=== PATIENT | female | born 1945 | race Caucasian/White ===

== ENCOUNTER 2021-03-16 12:13 | Inpatient (IN) ==
[2021-03-16] MEDS ORDERED: ONDANSETRON INJ 2 MG/ML 2 ML VIAL IV STA ×2 (12:56→14:55)
[2021-03-16] MEDS ORDERED: SODIUM CHLORIDE 0.9% 1000ML 500 ML IV ONE (12:56)
[2021-03-16 13:08] LABS: Basophils # (auto) 0.01 K/uL (0-0.2); Basophils % (auto) 0.1 %; Eosinophils # (auto) 0.02 K/uL (0-0.5); Eosinophils % (auto) 0.3 %; Hemoglobin 13.4 g/dL (12.0-16.0); Immature Granulocytes # (auto) 0.03 K/uL (0.00-0.02); Immature Granulocytes % (auto) 0.4 %; Lymphocytes # (auto) 1.29 K/uL (1.2-3.4); Lymphocytes % (auto) 17.2 %; Mean Corpuscular Hemoglobin 28.2 pg (25-34); Mean Corpuscular Hgb Conc 33.5 g/dL (32-36); Mean Corpuscular Volume 84.2 fL (80-100); Mean Platelet Volume 9.3 fL (7.4-10.4); Monocytes # (auto) 0.69 K/uL (0.11-0.59); Monocytes % (auto) 9.2 %; Neutrophils # (auto) 5.48 K/uL (1.4-6.5); Neutrophils % (auto) 72.8 %; Platelet Count 333 K/uL (130-400); RDW Coefficient of Variation 13.2 % (11.5-14.5); RDW Standard Deviation 40.5 fL (36.4-46.3); Red Blood Count 4.75 M/uL (4.2-5.4); White Blood Count 7.52 K/uL (4.8-10.8)
[2021-03-16] MEDS ORDERED: MoRPHine SULFATE 2 MG/ML CARP IV STA (13:09)
[2021-03-16] MEDS ORDERED: ACETAMINOPHEN 1000 MG/100 ML IV IV STA (13:09)
--- NOTE | 2021-03-16 13:13 | Emergency Department Note ---
Impression & Plan Diffuse abdominal pain, Acute dehydration, Nausea, Diarrhea, Failure of outpatient treatment, COVID-19 ED Provider Note NAME: MAX HUDSON AGE: 76 SEX: F : 1945 ARRIVES VIA: Ambulance INFORMANT: [Patient] ED PROVIDER(S): [Jamie James MD] CHIEF COMPLAINT: Abdominal pain HISTORY OF PRESENT ILLNESS: The patient is a 76-year-old female who presents to the ER with lower abdominal pain that is an 8/10. The patient was diagnosed with COVID-19 over 2 weeks ago as an outpatient. She was seen in our ED on 08 March, 8 days ago. Patient had a CT of her abdomen at that time that showed gastroenteritis. She was felt stable for discharge home. The patient states that since being at home, she has continued to have diarrhea, belching and nausea. She has continued to have the lower abdominal pain that radiates to her back. It is a burning sensation. She is concerned that something else is wrong. The patient states that she is trying Zofran for nausea but it rios s not helped. The patient has had some chills, no fever, no cough or congestion or shortness of breath. She is not vaccinated for COVID-19 or influenza. She has at times tried ibuprofen for pain. The ibuprofen does not really do much for her discomfort. The patient believes that she is quite bloated. She feels like she may be full of gas. She is concerned for diverticulitis. REVIEW OF SYSTEMS: See HPI for pertinent positives and negatives. A total of ten systems were reviewed and were otherwise negative. PMHx/PSHx: See Below SOCIAL HISTORY: See Below. PHYSICAL EXAM: GENERAL: Patient is in no acute distress. HEENT: No acute trauma, normocephalic atraumatic, mucous membranes moist, no nasal congestion, no scleral icterus. NECK: No stridor, no adenopathy, no meningismus, trachea is midline. LUNGS: Clear to auscultation bilaterally, no wheeze, no rhonchi, breath sounds e qual. HEART: Without murmurs gallops or rubs, regular rate and rhythm. ABDOMEN: Soft, mild discomfort to palpate the lower abdomen bilaterally. Bowel sounds are hyperactive. There is some abdominal distention noted. No peritonitis. EXTREMITIES: No cyanosis or edema, full range of motion of all the joints without pain or difficulty, no signs for acute trauma. NEUROLOGIC: Oriented x 3, no acute motor or sensory deficits, no focal weakness. SKIN: No rash, no jaundice, no diaphoresis. DIFFERENTIAL DIAGNOSIS: Appendicitis, ovarian cyst, ovarian torsion, diverticulitis, UTI, obstruction, COVID-19, gastroenteritis, colitis, dehydration, mesenteric ischemia, aortic pathology, inflammatory bowel disease, renal colic, PUD, pancreatitis, biliary pathology, hernia, volvulus, constipation, as well as other pathologies. EMERGENCY DEPARTMENT COURSE/PROCEDURES: ECG: Indication was abdominal pain. The ECG shows a sinus bradycardia with a rate of fifty-eight. There is diffuse nonspecific ST change. No ST elevation, no PVCs. The QTc is 453. Continuous Cardiac Monitoring: An order was placed for continuous cardiac m onitoring. The monitor shows a rate of 63 with normal sinus rhythm. MEDICAL DECISION MAKING: There is no leukocytosis or concerning anemia. There is a normal platelet count. Potassium slightly low but not in need of emergent correction. No kidney failure. No worrisome liver enzyme elevation. No evidence for pancreatitis. ECG shows a sinus bradycardia, no acute ischemia. Cardiac enzyme testing x1 is not not consistent with acute cardiac injury. Covid testing is positive. Influenza and RSV tests are negative. Chest film does show some parenchymal congestion consistent with a mild Covid pneumonia. Abdominal and pelvis CT does not show any bowel obstruction or acute colitis. There is no diverticulitis. No acute surgical process by CT imaging. On exam, patient was diffusely tender about the abdomen, she was not showing signs of peritonitis. She was not toxic or febrile. The patient received IV saline for hydration. She was given IV Zofran for nausea. A second dose of Zofran was required IV. She was then given IV Phenergan for nausea. She received IV Toradol for pain, IV morphine for pain. She was given IV Tylenol for pain. The patient presents with persistent nausea, abdominal pain, diarrhea. She cannot eat, she feels dehydrated. She does have COVID-19 and it appears that her symptoms are more GI related, not respiratory. The patient is not able be discharged home. She has failed outpatient treatment. She will require further care and hydration while here in the hospital. I did speak with the patient and and case management. The on-call hospitalist was consulted. Past Med/Surg History Medical History COVID-19 Family History (Updated 03/16/21 @ 17:46 by John Paul Aldana MD) Mother Hypertension Social History Smoking Status: Never smoker Hx Alcohol Use: No Feels Safe at Home: Yes Allergies Allergies Allergy/AdvReac Type Severity Reaction Status Date / Time No Known Allergies Allergy Verified 03/16/21 15:37 Home Meds Home Medications Medication Instructions Recorded Confirmed atenolol 25 mg tablet 25 mg PO DAILY 03/08/21 03/16/21 cholecalciferol (vitamin D3) 25 25 mcg PO QDL 03/08/21 03/16/21 mcg (1,000 unit) capsule (Vitamin D3) levothyroxine 125 mcg tablet See Rx Instructions .ROUTE .COMPLEX 03/08/21 03/16/21 lisinopril 40 mg tablet 40 mg PO HS 03/08/21 03/16/21 psyllium husk (with sugar) 3 1 tbsp PO DAILY 03/08/21 03/16/21 gram/7 gram oral powder (Metamucil Free) sertraline 100 mg tablet 100 mg PO HS 03/08/21 03/16/21 vitamin B complex 1 cap PO QDL 03/08/21 03/16/21 fluticasone propionate 50 2 spray INTRANASAL DAILY 03/16/21 03/16/21 mcg/actuation nasal spray,suspension ondansetron 4 mg disintegrating 4 mg TRANSLINGUAL Q8 PRN 03/16/21 03/16/21 tablet Results & Data (ED) Vital Signs Vital Signs - 24 hr 03/16/21 12:39 03/16/21 12:50 03/16/21 13:00 Temperature 36.8 C Temperature Source Oral Pulse Rate 62 58 L 60 Pulse Rate from SpO2 Sensor 59 L 59 L Pulse Rhythm Regular Pulse Strength Normal Respiratory Rate 20 15 19 Respiratory Effort / Characteristics Non-Labored Respiratory Depth Normal Blood Pressure 190/88 H 169/85 H Blood Pressure Mean 122 113 Pulse Oximetry 95 95 95 Oxygen Delivery Method Room Air Room Air Room Air Sepsis Recent Fever Within 48 Hours No Sepsis New/Unexplained Change in Mental Status No Sepsis Action Taken by Nursing No Action Required 03/16/21 13:10 03/16/21 13:20 03/16/21 13:30 Temperature Temperature Source Pulse Rate 62 59 L 59 L Pulse Rate from SpO2 Sensor 62 59 L 59 L Pulse Rhythm Pulse Strength Respiratory Rate 14 12 12 Respiratory Effort / Characteristics Respiratory Depth Blood Pressure Blood Pressure Mean Pulse Oximetry 94 94 94 Oxygen Delivery Method Room Air Room Air Room Air Sepsis Recent Fever Within 48 Hours Sepsis New/Unexplained Change in Mental Status Sepsis Action Taken by Nursing 03/16/21 13:40 03/16/21 13:50 03/16/21 14:00 Temperature Temperature Source Pulse Rate 58 L 63 57 L Pulse Rate from SpO2 Sensor 58 L 62 56 L Pulse Rhythm Pulse Strength Respiratory Rate 12 14 13 Respiratory Effort / Characteristics Respiratory Depth Blood Pressure 160/80 H Blood Pressure Mean 106 Pulse Oximetry 95 95 93 Oxygen Delivery Method Room Air Room Air Room Air Sepsis Recent Fever Within 48 Hours Sepsis New/Unexplained Change in Mental Status Sepsis Action Taken by Nursing 03/16/21 14:10 03/16/21 14:20 03/16/21 14:30 Temperature Temperature Source Pulse Rate 60 64 65 Pulse Rate from SpO2 Sensor 60 64 65 Pulse Rhythm Pulse Strength Respiratory Rate 11 L 14 14 Respiratory Effort / Characteristics Respiratory Depth Blood Pressure Blood Pressure Mean Pulse Oximetry 93 94 91 Oxygen Delivery Method Room Air Room Air Room Air Sepsis Recent Fever Within 48 Hours Sepsis New/Unexplained Change in Mental Status Sepsis Action Taken by Nursing 03/16/21 14:46 03/16/21 14:50 03/16/21 15:00 Temperature Temperature Source Pulse Rate 67 79 65 Pulse Rate from SpO2 Sensor 65 59 L 65 Pulse Rhythm Pulse Strength Respiratory Rate 19 22 14 Respiratory Effort / Characteristics Respiratory Depth Blood Pressure 157/76 H Blood Pressure Mean 103 Pulse Oximetry 93 94 95 Oxygen Delivery Method Room Air Room Air Room Air Sepsis Recent Fever Within 48 Hours Sepsis New/Unexplained Change in Mental Status Sepsis Action Taken by Nursing 03/16/21 15:10 03/16/21 15:20 03/16/21 15:30 Temperature Temperature Source Pulse Rate 60 62 64 Pulse Rate from SpO2 Sensor 61 63 64 Pulse Rhythm Pulse Strength Respiratory Rate 14 14 16 Respiratory Effort / Characteristics Respiratory Depth Blood Pressure Blood Pressure Mean Pulse Oximetry 95 97 97 Oxygen Delivery Method Room Air Room Air Room Air Sepsis Recent Fever Within 48 Hours Sepsis New/Unexplained Change in Mental Status Sepsis Action Taken by Nursing 03/16/21 15:40 03/16/21 15:50 03/16/21 16:00 Temperature Temperature Source Pulse Rate 61 62 65 Pulse Rate from SpO2 Sensor 62 62 Pulse Rhythm Pulse Strength Respiratory Rate 12 11 L 14 Respiratory Effort / Characteristics Respiratory Depth Blood Pressure 131/76 Blood Pressure Mean 94 Pulse Oximetry 95 96 Oxygen Delivery Method Room Air Room Air Room Air Sepsis Recent Fever Within 48 Hours Sepsis New/Unexplained Change in Mental Status Sepsis Action Taken by Nursing 03/16/21 16:10 03/16/21 16:20 Temperature Temperature Source Pulse Rate 67 62 Pulse Rate from SpO2 Sensor 67 62 Pulse Rhythm Pulse Strength Respiratory Rate 16 13 Respiratory Effort / Characteristics Respiratory Depth Blood Pressure Blood Pressure Mean Pulse Oximetry 98 96 Oxygen Delivery Method Room Air Room Air Sepsis Recent Fever Within 48 Hours Sepsis New/Unexplained Change in Mental Status Sepsis Action Taken by Group Home Medications Current Medication List: was personally reviewed by me Laboratory Data Attestation: I reviewed the patient's lab results. Result diagrams: 03/16/21 12:35 03/16/21 12:35 Lab Results 03/16/21 03/16/21 03/16/21 Range/Units 12:35 12:35 13:49 WBC 7.52 (4.8-10.8) K/uL RBC 4.75 (4.2-5.4) M/uL Hgb 13.4 (12.0-16.0) g/dL Hct 40.0 (37-47) % MCV 84.2 (80-100) fL MCH 28.2 (25-34) pg MCHC 33.5 (32-36) g/dL RDW Std Deviation 40.5 (36.4-46.3) fL RDW Coeff of Mely 13.2 (11.5-14.5) % Plt Count 333 (130-400) K/uL MPV 9.3 (7.4-10.4) fL Immature Gran % (Auto) 0.4 % Neut % (Auto) 72.8 % Lymph % (Auto) 17.2 % [place] % (Auto) 9.2 % Eos % (Auto) 0.3 % Baso % (Auto) 0.1 % Neut # (Auto) 5.48 (1.4-6.5) K/uL Lymph # (Auto) 1.29 (1.2-3.4) K/uL [place] # (Auto) 0.69 H (0.11-0.59) K/uL Eos # (Auto) 0.02 (0-0.5) K/uL Baso # (Auto) 0.01 (0-0.2) K/uL Immature Gran # (Auto) 0.03 H (0.00-0.02) K/uL Sodium 137 (136-145) mmol/L Potassium 3.4 L (3.5-5.1) mmol/L Chloride 107 (98-107) mmol/L Carbon Dioxide 23 (21-32) mmol/L Anion Gap 7.0 (3-11) BUN 13 (7-18) mg/dl Creatinine 0.82 (0.6-1.2) mg/dl Est Cr Clr Drug Dosing 55.8 ml/min Est GFR ( Amer) 81.1 ml/min Est GFR (Non-Af Amer) 70.0 ml/min BUN/Creatinine Ratio 16.3 (10-20) Glucose 102 H (70-99) mg/dl Calcium 8.7 (8.5-10.1) mg/dl Total Bilirubin 0.6 (0.2-1) mg/dl AST 29 (15-37) U/L ALT 46 (12-78) Alkaline Phosphatase 86 (45-117) U/L Troponin I < 0.015 (0-0.045) ng/ml Total Protein 7.0 (6.4-8.2) gm/dl Albumin 3.1 L (3.4-5.0) gm/dl Globulin 3.9 (2.5-4.0) gm/dl Albumin/Globulin Ratio 0.8 L (0.9-2) Lipase 183 (73-393) U/L SARS-CoV-2 (PCR) POSITIVE A* (Negative) Influenza Type A (PCR) Negative (Neg) Influenza Type B (PCR) Negative (Neg) RSV (RT-PCR) Negative (Neg) Administered Medications Discontinued Medications Acetaminophen (Acetaminophen 1000 Mg/100 Ml Iv) 1,000 mg IV NOW STA Stop: 03/16/21 13:10 Last Admin: 03/16/21 13:45 Dose: 1,000 mg Documented by: [id number] Sodium Chloride (Nss 1000ml) 500 mls @ 999 mls/hr IV .Q31M ONE Stop: 03/16/21 13:26 Last Infusion: 03/16/21 14:27 Dose: 0 mls/hr Documented by: [id number] Admin: 03/16/21 13:45 Dose: 999 mls/hr Documented by: [id number] Promethazine HCl (Phenergan) 6.25 mg in 50.25 mls @ 201 mls/hr IV NOW STA Stop: 03/16/21 15:09 Last Admin: 03/16/21 16:26 Dose: Not Given Documented by: [id number] Ketorolac Tromethamine (Ketorolac Tromethamine 15 Mg/Ml Vial) 15 mg IV NOW STA Stop: 03/16/21 15:18 Last Admin: 03/16/21 16:25 Dose: Not Given Documented by: [id number] Morphine Sulfate (Morphine Sulfate 2 Mg/Ml Carp) 2 mg IV NOW STA Stop: 03/16/21 13:10 Last Admin: 03/16/21 13:45 Dose: 2 mg Documented by: [id number] Morphine Sulfate (Morphine Sulfate 4 Mg/Ml 1 Ml Carp\Vial) 4 mg IV NOW STA Stop: 03/16/21 15:18 Last Admin: 03/16/21 16:25 Dose: Not Given Documented by: [id number] Ondansetron HCl (Ondansetron Inj 2 Mg/Ml 2 Ml Vial) 4 mg IV NOW STA Stop: 03/16/21 12:57 Last Admin: 03/16/21 13:45 Dose: 4 mg Documented by: [id number] Ondansetron HCl (Ondansetron Inj 2 Mg/Ml 2 Ml Vial) 4 mg IV NOW STA Stop: 03/16/21 14:56 Last Admin: 03/16/21 15:06 Dose: 4 mg Documented by: [id number] Imaging Data Radiologist's Impression: Abdomen/Pelvis CT 03/16/21 12:[address] WITHOUT CONTRAST CT DOSE: 437.34 mGy.cm HISTORY: Acute generalized abdominal pain with nausea. COVID Positive. poss obstruction TECHNIQUE: Multiaxial CT images of the abdomen and pelvis were performed without contrast. A dose lowering technique was utilized adhering to the principles of ALARA. COMPARISON STUDY: Chest radiograph of same day, CT abdomen and pelvis 03/08/2021 FINDINGS: Bibasilar patchy subpleural predominant groundglass densities are redemonstrated. Trace left pleural effusion. No pneumatosis or pneumoperitoneum. The imaged inferior cardiac chambers are unremarkable with coronary artery calcifications. The unenhanced spleen, pancreas and adrenal glands are unremarkable. Cholecystectomy. Dilation of the intrahepatic and extrahepatic biliary tree is unchanged from prior and is presumably on a postsurgical basis. Unremarkable kidneys. No urolith or hydronephrosis. Unremarkable urinary bladder, uterus and adnexa with 11 mm cystic focus of the right adnexum redemonstrated. Atherosclerosis of the aorta without aneurysm. There is no adenopathy. There is no bowel obstruction or bowel wall thickening. Colonic diverticulosis without acute diverticulitis. The appendix is not definitively seen. No secondary signs of acute appendicitis. Tiny fat filled periumbilical hernia. Unremarkable soft tissues. There is no acute fracture identified. Degenerative changes of the spine, pelvis and hips. IMPRESSION: 1. Persistent bibasilar groundglass densities suggestive of viral pneumonia. 2. No bowel obstruction or bowel wall thickening. 3. Additional findings as above. ACT 112: Negative or not required by law. The above report was generated using voice recognition software. It may contain grammatical, syntax or spelling errors. Electronically signed by: Jarek Reyes M.D. 03/16/2021 2:57 PM Chest X-Ray 03/16/21 12:56 XR chest 1V portable HISTORY: 76 years-old Female abd pain acute generalized abdominal pain COMPARISON: Chest radiographs 03/08/2021 TECHNIQUE: Portable AP view of the chest FINDINGS: Cardiac silhouette is upper limits of normal in size. Interstitial coarsening with ill-defined bibasilar opacities are new from prior. No pneumothorax, large pleural effusion or overt pulmonary edema. The bones appear grossly intact. IMPRESSION: Mild interstitial coarsening with ill-defined bibasilar opacities. Correlate clinically to exclude an infectious or inflammatory pneumonitis. ACT 112: Negative or not required by law. The above report was generated using voice recognition software. It may contain grammatical, syntax or spelling errors. Electronically signed by: Jarek Reyes M.D. 03/16/2021 2:07 PM Discharge Plan Visit Data Chief Complaint: Abdominal Pain ED Provider: Jamie James Discharge Problem: Diffuse abdominal pain, Acute dehydration, Nausea, Diarrhea, Failure of outpatient treatment, COVID-19 Patient Disposition: Admitted As Inpatient Condition: Fair Forms Stand Alone Forms: My [facility] Prescriptions Prescriptions: No Action sertraline 100 mg tablet 100 mg PO HS RF: 0 atenolol 25 mg tablet 25 mg PO DAILY RF: 0 levothyroxine 125 mcg tablet See Rx Instructions .ROUTE .COMPLEX RF: 0 lisinopril 40 mg tablet 40 mg PO HS RF: 0 vitamin B complex [B Complex] Capsule 1 cap PO QDL RF: 0 cholecalciferol (vitamin D3) [Vitamin D3] 25 mcg (1,000 unit) Capsule 25 mcg PO QDL RF: 0 Metamucil Free 3 gram/7 gram Powder 1 tbsp PO DAILY RF: 0 ondansetron 4 mg tablet,disintegrating 4 mg translingual Q8 PRN (Reason: Nausea) RF: 0 fluticasone propionate 50 mcg/actuation spray,suspension 2 spray INTRANASAL DAILY RF: 0 Referrals Referrals: Juan Spangler MD [Primary Care Provider] -
[2021-03-16 13:29] LABS: Alanine Aminotransferase 46 (12-78); Albumin Level 3.1 gm/dl (3.4-5.0); Aspartate Aminotransferase 29 U/L (15-37); BUN Creatinine Ratio 16.3 (10-20); Blood Urea Nitrogen 13 mg/dl (7-18); Calcium 8.7 mg/dl (8.5-10.1); Carbon Dioxide 23 mmol/L (21-32); Chloride 107 mmol/L (98-107); Creatinine Clr Calc Pharmacy 55.8 ml/min; Est GFR (African American) 81.1 ml/min; Glucose 102 mg/dl (70-99); Lipase 183 U/L (73-393); Potassium 3.4 mmol/L (3.5-5.1); Sodium 137 mmol/L (136-145)
[2021-03-16 13:34] LABS: Albumin Globulin Ratio 0.8 (0.9-2); Alkaline Phosphatase 86 U/L (45-117); Bilirubin,Total 0.6 mg/dl (0.2-1); Globulin 3.9 gm/dl (2.5-4.0); Troponin I < 0.015 ng/ml (0-0.045)
--- NOTE | 2021-03-16 14:08 | XRay Report ---
XR chest 1V portable HISTORY: 76 years-old Female abd pain acute generalized abdominal pain COMPARISON: Chest radiographs 03/08/2021 TECHNIQUE: Portable AP view of the chest FINDINGS: Cardiac silhouette is upper limits of normal in size. Interstitial coarsening with ill-defined bibasi lar opacities are new from prior. No pneumothorax, large pleural effusion or overt pulmonary edema. T he bones appear grossly intact. IMPRESSION: Mild interstitial coarsening with ill-defined bibasilar opacities. Correlate clinically t o exclude an infectious or inflammatory pneumonitis. ACT 112: Negative or not required by law. The above report was generated using voice recognition software. It may contain grammatical, syntax o r spelling errors. Electronically signed by: Jarek Reyes M.D. 03/16/2021 2:07 PM
[2021-03-16 14:40] LABS: Influenza A virus by PCR Negative (Neg); Influenza B virus by PCR Negative (Neg); RSV by PCR Negative (Neg)
--- NOTE | 2021-03-16 14:59 | CT Scan Report ---
ABDOMEN AND PELVIS CT WITHOUT CONTRAST CT DOSE: 437.34 mGy.cm HISTORY: Acute generalized abdominal pain with nausea. COVID Positive. poss obstruction TECHNIQUE: Multiaxial CT images of the abdomen and pelvis were performed without contrast. A dose lo wering technique was utilized adhering to the principles of ALARA. COMPARISON STUDY: Chest radiograph of same day, CT abdomen and pelvis 03/08/2021 FINDINGS: Bibasilar patchy subpleural predominant groundglass densities are redemonstrated. Trace lef t pleural effusion. No pneumatosis or pneumoperitoneum. The imaged inferior cardiac chambers are unre markable with coronary artery calcifications. The unenhanced spleen, pancreas and adrenal glands are unremarkable. Cholecystectomy. Dilation of the intrahepatic and extrahepatic biliary tree is unchange d from prior and is presumably on a postsurgical basis. Unremarkable kidneys. No urolith or hydroneph rosis. Unremarkable urinary bladder, uterus and adnexa with 11 mm cystic focus of the right adnexum r edemonstrated. Atherosclerosis of the aorta without aneurysm. There is no adenopathy. There is no bowel obstruction or bowel wall thickening. Colonic diverticulosis without acute divertic ulitis. The appendix is not definitively seen. No secondary signs of acute appendicitis. Tiny fat eugenio led periumbilical hernia. Unremarkable soft tissues. There is no acute fracture identified. Degenerat nathaly changes of the spine, pelvis and hips. IMPRESSION: 1. Persistent bibasilar groundglass densities suggestive of viral pneumonia. 2. No bowel obstruction or bowel wall thickening. 3. Additional findings as above. ACT 112: Negative or not required by law. The above report was generated using voice recognition software. It may contain grammatical, syntax o r spelling errors. Electronically signed by: Jarek Reyes M.D. 03/16/2021 2:57 PM
[2021-03-16] MEDS: PROMETHAZINE 6.25 MG/50.25 ML BAG IV STA ×2 (15:06→16:26)
[2021-03-16 15:15] LABS: SARS CoV2 RNA(COVID-19) InHosp POSITIVE (Negative)
[2021-03-16] MEDS ORDERED: MoRPHine SULFATE 4 MG/ML 1 ML CARP\\VIAL IV STA (15:17)
[2021-03-16] MEDS ORDERED: KETOROLAC TROMETHAMINE 15 MG/ML VIAL IV STA (15:17)
--- NOTE | 2021-03-16 16:00 | History & Physical Report ---
Date of Service March 16, 2021 Assessment & Plan (1) Diffuse abdominal pain: Plan: Abdominal pain, nausea and vomiting, diarrhea Dehydration Likely enteritis secondary to COVID-19 infection --CT ABD:Persistent bibasilar groundglass densities suggestive of viral pneumonia. No bowel obstruction or bowel wall thickening. --Lipase normal --Clear liquid diet IV fluids Pain control We will obtain stool studies to rule out infection Antiemetics as needed We will start on Imodium if stool studies negative Start on Pepcid Consider GI evaluation if needed Urinalysis pending COVID-19 infection CXR:Mild interstitial coarsening with ill-defined bibasilar opacities. Correlate clinically to exclude an infectious or inflammatory pneumonitis. Patient is not vaccinated Symptom onset 2 weeks ago Tested positive for COVID on 03/04/2021 on outpatient records Saturating well on room air Does not qualify for any treatment Supportive treatment Supplemental oxygen if needed Check procalcitonin, CRP Consider antibiotics if procalcitonin elevated Hypokalemia Secondary to GI losses Replace electrolytes as needed CKD III Creatinine at baseline Monitor renal function Avoid nephrotoxic agents as able Hypothyroidism S/P thyroidectomy Continue levothyroxine Hypertension Continue home medications DVT prophylaxis Lovenox SQ CODE STATUS Full code Disposition Plan to discharge home when medically stable. History of Present Illness Chief Complaint: Abdominal Pain Primary Care Provider: Juan Spangler MD Patient is a 76-year-old female with history of CKD stage III, hypertension, hypothyroidism, anxiety disorder and other medical problems presents with history of worsening abdominal pain associated with nausea, vomiting, diarrhea and back pain since about 2 weeks duration. She was tested positive for Covid on March 04, 2021. Patient did not require any treatment for Covid infection. She states that she is unvaccinated for Covid. Symptoms have been ongoing since last 2 weeks. Currently she is saturating well on room air. She describes the pain mostly suprapubic, intermittently epigastric, sharp and dull, " gas-like pain", 8/10 intensity, nonradiating, with no obvious aggravating or relieving factors. Denies any association with food intake, bowel movements. Also reports having diarrhea which started about 2 weeks ago, then relieved and had recurred since last night. Denies any recent antibiotic use, blood in stools. Denies any history of chest pain, SOB, dizziness, cough, hemoptysis, fever, chills, headache, dysuria, hematuria, sick contact, recent change in medications. Allergies Allergy/AdvReac Type Severity Reaction Status Date / Time No Known Allergies Allergy Verified 03/16/21 15:37 Home Medications Medication Instructions Recorded Confirmed Type atenolol 25 mg tablet 25 mg PO DAILY 03/08/21 03/16/21 History cholecalciferol (vitamin D3) 25 25 mcg PO QDL 03/08/21 03/16/21 History mcg (1,000 unit) capsule (Vitamin D3) levothyroxine 125 mcg tablet See Rx Instructions .ROUTE .COMPLEX 03/08/21 03/16/21 History lisinopril 40 mg tablet 40 mg PO HS 03/08/21 03/16/21 History psyllium husk (with sugar) 3 1 tbsp PO DAILY 03/08/21 03/16/21 History gram/7 gram oral powder (Metamucil Free) sertraline 100 mg tablet 100 mg PO HS 03/08/21 03/16/21 History vitamin B complex 1 cap PO QDL 03/08/21 03/16/21 History fluticasone propionate 50 2 spray INTRANASAL DAILY 03/16/21 03/16/21 History mcg/actuation nasal spray,suspension ondansetron 4 mg disintegrating 4 mg TRANSLINGUAL Q8 PRN 03/16/21 03/16/21 History tablet Past Med/Surg History Medical History (Updated 03/16/21 @ 17:47 by Jamie James MD) COVID-19 Family History Mother Hypertension Social History Smoking Status: Never smoker Hx Alcohol Use: No Feels Safe at Home: Yes Review of Systems Review of Systems: All systems reviewed & are unremarkable except as noted in Subjective Physical Exam Physical Exam: Physical Exam: Vitals signs as noted above General Appearance:Moderately built and nourished, no apparent distress Head: normocephalic, Atraumatic Eyes: normal inspection, EOMI Neck: supple, Trachea midline Respiratory/Chest: Decreased breath sounds, Basal crackles, No accessory muscle use Cardiovascular: S1, S2, No murmur Abdomen/GI:Soft, Non tender, Bowel sounds present Extremities/Musculoskeletal:normal inspection, no edema Neurologic/Psych:AAOX3, grossly no focal neurological deficits Skin: normal color, warm Results & Data Results & Data ([facility]) Vital Signs (Past 12 Hours) Vital Signs Temp Pulse Resp BP Pulse Ox 03/16/21 14:30 65 14 91 03/16/21 14:20 64 14 94 03/16/21 14:10 60 11 L 93 03/16/21 14:00 57 L 13 160/80 H 93 03/16/21 13:50 63 14 95 03/16/21 13:40 58 L 12 95 03/16/21 13:30 59 L 12 94 03/16/21 13:20 59 L 12 94 03/16/21 13:10 62 14 94 03/16/21 13:00 60 19 169/85 H 95 03/16/21 12:50 58 L 15 95 03/16/21 12:39 36.8 C 62 20 190/88 H 95 Laboratory Results Short CBC 03/16/21 Range/Units 12:35 WBC 7.52 (4.8-10.8) K/uL Hgb 13.4 (12.0-16.0) g/dL Hct 40.0 (37-47) % Plt Count 333 (130-400) K/uL BMP 03/16/21 12:35 Sodium 137 Potassium 3.4 L Chloride 107 Carbon Dioxide 23 BUN 13 Creatinine 0.82 Glucose 102 H Calcium 8.7 Cardiac Enzymes 03/16/21 Range/Units 12:35 Troponin I < 0.015 (0-0.045) ng/ml Liver Function 03/16/21 Range/Units 12:35 Total Bilirubin 0.6 (0.2-1) mg/dl AST 29 (15-37) U/L ALT 46 (12-78) Alkaline Phosphatase 86 (45-117) U/L Albumin 3.1 L (3.4-5.0) gm/dl Diagnostic Findings CT ABD: 1. Persistent bibasilar groundglass densities suggestive of viral pneumonia. 2. No bowel obstruction or bowel wall thickening. CXR: Mild interstitial coarsening with ill-defined bibasilar opacities. Correlate clinically to exclude an infectious or inflammatory pneumonitis. ECG Additional Comments: EKG: Sinus bradycardia, nonspecific ST-T wave abnormality. QTC 453.
[2021-03-16] MEDS: FAMOTIDINE 20 MG in SYRINGE 3 ML IV SCH ×2 (18:38→22:27)
[2021-03-16] MEDS ORDERED: ONDANSETRON INJ 2 MG/ML 2 ML VIAL IV PRN (18:55)
[2021-03-16] MEDS ORDERED: MoRPHine SULFATE 2 MG/ML CARP IV PRN (18:55)
[2021-03-16] MEDS ORDERED: BENZONATATE 100 MG CAPSULE PO PRN (18:55)
[2021-03-16] MEDS ORDERED: ACETAMINOPHEN 325 MG TAB PO PRN (18:55)
[2021-03-16] MEDS: NSS + 20MEQ KCL 20 MEQ/1,000 ML BAG IV SCH (19:30)
[2021-03-16] MEDS ORDERED: lisinopril 40 MG TAB PO SCH (21:00)
[2021-03-16] MEDS ORDERED: SERTRALINE HCL 100 MG TABLET PO SCH (21:00)
--- NOTE | 2021-03-16 21:42 | Electrocardiogram Report ---
Test Reason : Blood Pressure : / mmHG Vent. Rate : 058 BPM Atrial Rate : 058 BPM P-R Int : 146 ms QRS Dur : 076 ms QT Int : 462 ms P-R-T Axes : 035 007 -07 degrees QTc Int : 453 ms Sinus bradycardia Nonspecific ST and T wave abnormality Abnormal ECG When compared with ECG of 08-MAR-2021 19:32, No significant change was found Confirmed by Brannon Fajardo ([id number]) on 03/16/2021 9:42:33 PM Referred By: REFERRED SELF Confirmed By:Brannon Fajardo
[2021-03-16 22:30] LABS: Appearance Urine Clear (Clear); Bilirubin Urine Negative (Negative); Blood Urine Negative (Negative); Color Urine Yellow; Glucose Urine UA Negative (Negative); Ketones Urine Trace (Negative); Leukocyte Esterase Urine Negative (Negative); Nitrite Urine Negative (Negative); Protein Urine Negative (Negative); Specific Gravity Urine 1.017 (1.000-1.030); Urobilinogen Urine Negative (Negative)
[2021-03-17 05:33] LABS: Hemoglobin 12.2 g/dL (12.0-16.0); Mean Corpuscular Hemoglobin 28.3 pg (25-34); Mean Corpuscular Volume 85.8 fL (80-100); Platelet Count 268 K/uL (130-400); RDW Coefficient of Variation 13.4 % (11.5-14.5); RDW Standard Deviation 42.4 fL (36.4-46.3); Red Blood Count 4.31 M/uL (4.2-5.4)
[2021-03-17 05:55] LABS: BUN Creatinine Ratio 15.5 (10-20); Calcium 7.9 mg/dl (8.5-10.1); Creatinine Clr Calc Pharmacy 65.4 ml/min; Est GFR (African American) 98.2 ml/min; Est GFR (Non-African American) 84.8 ml/min; Magnesium 2.1 mg/dl (1.8-2.4); Potassium 3.6 mmol/L (3.5-5.1)
[2021-03-17 05:56] LABS: C Reactive Protein 0.7 mg/dl (0-0.29)
[2021-03-17] MEDS ORDERED: LEVOTHYROXINE SODIUM 125 MCG TABLET PO SCH (06:30)
[2021-03-17] MEDS: NSS + 20MEQ KCL 20 MEQ/1,000 ML BAG IV SCH (08:20)
[2021-03-17] MEDS ORDERED: ENOXAPARIN INJ 40 MG/0.4 ML SYR SQ SCH (09:00)
[2021-03-17] MEDS ORDERED: ATENOLOL 25 MG TABLET PO SCH (09:00)
[2021-03-17] MEDS ORDERED: FLUTICASONE PROPIONATE NA SPR 16 GM BTL SCH (09:00)
[2021-03-17] MEDS: FAMOTIDINE 20 MG in SYRINGE 3 ML IV SCH (09:09)
[2021-03-17 12:31] LABS: Adenovirus F 40/41 PCR Not Detected (NotDetected); Astrovirus PCR Not Detected (NotDetected); Campylobacter PCR Not Detected (NotDetected); Clostridium diff Toxin A/B PCR Not Detected (NotDetected); Cryptosporidium PCR Not Detected (NotDetected); Cyclospora cayetanensis PCR Not Detected (NotDetected); Entamoeba histolytica PCR Not Detected (NotDetected); Enteroaggregative E.coli(EAEC) Not Detected (NotDetected); Enteropathogenic E.coli (EPEC) Not Detected (NotDetected); Enterotoxigenic E.coli (ETEC) Not Detected (NotDetected); Giardia lamblia PCR Not Detected (NotDetected); Norovirus GI/GII PCR Not Detected (NotDetected); Plesiomonas shigelloides PCR Not Detected (NotDetected); Rotavirus A PCR Not Detected (NotDetected); Salmonella PCR Not Detected (NotDetected); Sapovirus PCR Not Detected (NotDetected); Shiga-like Toxin E.coli (STEC) Not Detected (NotDetected); Shigella/Enteroinvasive E.coli Not Detected (NotDetected); Vibrio cholerae PCR Not Detected (NotDetected); Vibrio species PCR Not Detected (NotDetected); Yersinia enterocolitica PCR Not Detected (NotDetected)
--- NOTE | 2021-03-17 16:23 | Hospitalist Progress Note ---
Date of Service March 17, 2021 Assessment & Plan (1) Diffuse abdominal pain: Plan: Abdominal pain, nausea and vomiting, diarrhea Dehydration Likely enteritis secondary to COVID-19 infection --CT ABD:Persistent bibasilar groundglass densities suggestive of viral pneumonia. No bowel obstruction or bowel wall thickening. --Lipase normal Received IV fluids Pain control Stool studies negative for any infection Antiemetics as needed Imodium PRN Continue Pepcid Tolerating regular diet Clinically improved COVID-19 infection CXR:Mild interstitial coarsening with ill-defined bibasilar opacities. Correlate clinically to exclude an infectious or inflammatory pneumonitis. Patient is not vaccinated Symptom onset 2 weeks ago Tested positive for COVID on 03/04/2021 on outpatient records Saturating well on room air Does not qualify for any treatment Supportive treatment Supplemental oxygen if needed Normal procalcitonin Hypokalemia Secondary to GI losses Replace electrolytes as needed CKD III Creatinine at baseline Monitor renal function Avoid nephrotoxic agents as able Hypothyroidism S/P thyroidectomy Continue levothyroxine Hypertension Continue home medications DVT prophylaxis Lovenox SQ CODE STATUS Full code Disposition Plan to discharge home today Admission and Anticipated Discharge Date Admission Date: March 16, 2021 Subjective Patient is seen and examined at bedside Doing well today Saturating 95% on room air Had small bowel movement today Diarrhea resolved Denies any nausea, vomiting, abdominal pain Also denies any chest pain, shortness of breath, cough, dizziness Offers no other complaints Eager to get discharged Tolerated regular diet Review of Systems Review of Systems: All systems reviewed & are unremarkable except as noted in Subjective Physical Exam Physical Exam: Physical Exam: Vitals signs as noted above General Appearance:Moderately built and nourished, no apparent distress Head: normocephalic, Atraumatic Eyes: normal inspection, EOMI Neck: supple, Trachea midline Respiratory/Chest: Decreased breath sounds, CTA Cardiovascular: S1, S2, No murmur Abdomen/GI:Soft, Non tender, Bowel sounds present Extremities/Musculoskeletal:normal inspection, no edema Neurologic/Psych:AAOX3, grossly no focal neurological deficits Skin: normal color, warm Results & Data Results & Data ([facility]) Vital Signs (Past 12 Hours) Vital Signs Temp Pulse Pulse Resp BP BP Pulse Ox 03/17/21 13:00 53 L 14 159/73 H 97 03/17/21 12:38 36.9 C 52 L 18 146/71 H 98 03/17/21 12:30 51 L 14 146/71 H 98 03/17/21 12:00 52 L 16 138/69 96 03/17/21 11:34 55 L 18 128/76 97 03/17/21 11:30 128/86 03/17/21 11:00 56 L 17 136/70 03/17/21 10:45 60 15 142/86 H 96 03/17/21 10:44 36.4 C L 62 16 142/86 H 97 03/17/21 10:00 61 14 98 03/17/21 09:30 64 15 160/60 H 03/17/21 09:00 51 L 15 164/71 H 03/17/21 08:30 54 L 10 L 175/85 H 03/17/21 08:00 52 L 15 161/77 H 96 03/17/21 07:30 51 L 17 135/67 96 03/17/21 07:00 54 L 14 162/74 H 03/17/21 06:30 74 20 155/75 H 03/17/21 06:00 54 L 18 148/69 H 03/17/21 05:30 59 L 17 161/74 H 03/17/21 05:00 59 L 16 169/77 H 98 03/17/21 04:30 53 L 19 141/74 H 95 Laboratory Results Short CBC 03/17/21 Range/Units 05:25 WBC 6.50 (4.8-10.8) K/uL Hgb 12.2 (12.0-16.0) g/dL Hct 37.0 (37-47) % Plt Count 268 (130-400) K/uL BMP 03/17/21 05:25 Sodium 139 Potassium 3.6 Chloride 111 H Carbon Dioxide 24 BUN 11 Creatinine 0.70 Glucose 89 Calcium 7.9 L Urine 03/16/21 Range/Units 22:10 Urine Color Yellow Urine Appearance Clear (Clear) Urine pH 6.0 (4.5-7.5) Ur Specific [place] 1.017 (1.000-1.030) Urine Protein Negative (Negative) Urine Glucose (UA) Negative (Negative)
[2021-03-17 16:38] VITALS: BP 159/82; PULSE 60; TEMP 98.1; O2SAT 95
[2021-03-17] MEDS ORDERED: LOPERAMIDE HCL 2 MG CAP PO PRN (17:37)
[2021-03-17] MEDS ORDERED: ONDANSETRON 4 MG OD TAB PO PRN (17:38)
--- NOTE | 2021-03-17 17:44 | Discharge Summary ---
Date of Service March 17, 2021 Admission HPI Per Admitting Provider Patient is a 76-year-old female with history of CKD stage III, hypertension, hypothyroidism, anxiety disorder and other medical problems presents with history of worsening abdominal pain associated with nausea, vomiting, diarrhea and back pain since about 2 weeks duration. She was tested positive for Covid on March 04, 2021. Patient did not require any treatment for Covid infection. She states that she is unvaccinated for Covid. Symptoms have been ongoing since last 2 weeks. Currently she is saturating well on room air. She describes the pain mostly suprapubic, intermittently epigastric, sharp and dull, " gas-like pain", 8/10 intensity, nonradiating, with no obvious aggravating or relieving factors. Denies any association with food intake, bowel movements. Also reports having diarrhea which started about 2 weeks ago, then relieved and had recurred since last night. Denies any recent antibiotic use, blood in stools. Denies any history of chest pain, SOB, dizziness, cough, hemoptysis, fever, chills, headache, dysuria, hematuria, sick contact, recent change in medications. Admission Exam Per Admitting Provider Physical Exam: Physical Exam: Vitals signs as noted above General Appearance:Moderately built and nourished, no apparent distress Head: normocephalic, Atraumatic Eyes: normal inspection, EOMI Neck: supple, Trachea midline Respiratory/Chest: Decreased breath sounds, Basal crackles, No accessory muscle use Cardiovascular: S1, S2, No murmur Abdomen/GI:Soft, Non tender, Bowel sounds present Extremities/Musculoskeletal:normal inspection, no edema Neurologic/Psych:AAOX3, grossly no focal neurological deficits Skin: normal color, warm Principal Diagnosis COVID 19 Infection Dehydration Hypokalemia Discharge Data Allergies Allergy/AdvReac Type Severity Reaction Status Date / Time No Known Allergies Allergy Verified 03/16/21 15:37 Consultations 03/16/21 16:11 ED Decision to Admit Stat Ordered Studies 03/16/21 12:56 CT abd pelvis wo con Stat Hospital Course (1) Diffuse abdominal pain: Abdominal pain, nausea and vomiting, diarrhea Dehydration Likely enteritis secondary to COVID-19 infection --CT ABD:Persistent bibasilar groundglass densities suggestive of viral pneumonia. No bowel obstruction or bowel wall thickening. --Lipase normal Received IV fluids Pain control Stool studies negative for any infection Antiemetics as needed Imodium PRN Continue Pepcid Tolerating regular diet Clinically improved COVID-19 infection CXR:Mild interstitial coarsening with ill-defined bibasilar opacities. Correlate clinically to exclude an infectious or inflammatory pneumonitis. Patient is not vaccinated Symptom onset 2 weeks ago Tested positive for COVID on 03/04/2021 on outpatient records Saturating well on room air Does not qualify for any treatment Supportive treatment Supplemental oxygen if needed Normal procalcitonin Hypokalemia Secondary to GI losses Replace electrolytes as needed CKD III Creatinine at baseline Monitor renal function Avoid nephrotoxic agents as able Hypothyroidism S/P thyroidectomy Continue levothyroxine Hypertension Continue home medications DVT prophylaxis Lovenox SQ CODE STATUS Full code Disposition Plan to discharge home today Total Time Total Time Spent Total Time Spent (In Minutes): 40 minutes Discharge Plan Discharge Items Patient Disposition: Home - Self-Care Reason For Visit: ABDOMINAL PAIN Discharge Diagnosis: COVID 19 Infection Dehydration Hypokalemia Condition on Discharge: Fair Activity: Per Instructions section Exercise/Sports: Wait until after follow-up appointment Non-emergency contact: Primary Care Provider Call non-emergency contact if: you have any medication questions, your symptoms worsen, your pain is concerning for you and you have a fever Follow-up/Referrals: Juan Spangler MD [Primary Care Provider] - Diet: Heart Healthy and Lactose Intolerant Addtl Attending Provider Instructions: Follow-up with your primary care physician in 1 week Seek immediate medical attention if your symptoms reoccur or worsen Please take all medications as instructed on discharge list below. Please call if you have any questions or problems. You can reach a [facility] hospitalist on duty at [facility] 24 hours a day by calling [phone] Coronavirus disease 2019 (COVID-19) is a virus that causes a respiratory illness. It is caused by a coronavirus called 2019 novel coronavirus (2019- nCoV). There are many types of coronavirus. Coronaviruses are a very common cause of bronchitis. They may sometimes cause lung infection(pneumonia). Symptoms can range from mild to severe respiratory illness. These viruses are also foundin some animals. COVID-19 was first found in people in [facility], in late 2018. In 2020, several cases of COVID-19 have been confirmed in the [place] Public health officials are working to find the source. How the virus spreads is not yet fully known. It may be spread through droplets of fluid that a person coughs or sneezes into the air. It may be spread if you touch a surface with virus on it, such as a handle or object, and then touch your mouth. What are the symptoms of COVID-19? Some people have no symptoms or mild symptoms. Symptoms may appear 2 to 14 days after contact with the virus. Symptoms can include: Fever Coughing Trouble breathing What are possible complications from COVID-19? In many cases, this virus can cause infection (pneumonia) in both lungs. In some cases, this can cause . How is COVID-19 diagnosed? Your healthcare provider will ask about your symptoms. He or she will also ask about your recent travel and contact with sick people. Testing for the virus is only done through the [facility]. If yourhealthcare provider thinks you may have COVID- 19, he or she will work with your local health department and the CDC on testing. Follow all instructions from your healthcare provider. COVID-19 is diagnosed by: Nasal and throat swab. A cotton-tipped swab is wiped inside your nose or throat. This is done to check for viruses in your nasal mucus. Sputum culture. A small sample of mucus coughed from your lungs (sputum) is collected if you have a cough. It is checked for the virus. How is COVID-19 treated? There is currently no medicine to treat the virus. Treatment is done to help your body while it fights the virus. This is known as supportive care. Supportive care may include: Pain medicine. These include acetaminophen and ibuprofen. They are used to help ease pain and reduce fever. Bed rest. This helps your body fight the illness. For severe illness, you may need to stay in the hospital. Care during severe illness may include: IV (intravenous) fluids.These are given through a vein to help keep your body hydrated. Oxygen. Supplemental oxygen or ventilation with a breathing machine (ventilator) may be given. This is done to keep enough oxygen in your body. Are you at risk for COVID-19? If youve been to a place where people have been sick with this virus, you are at risk for infection. You are at risk if you: Recently traveled to an affected area Had contact with a sick person who recently traveled to this area Had contact with a person who was diagnosed with COVID-19 How can COVID-19 be prevented? There is no vaccine yet. The best prevention is to not have contact with the virus. The CDC advises that people should not travel to areas where there are COVID-19 outbreaks right now for any reason that is not urgent. To help prevent spreading the infection, wash your hands often, or use an alcohol-basedhand tip bander. If you are in an area with COVID-19: Wash your hands often. Or use an alcohol-based hand tip bander often. Only touch your eyes, nose, or mouth with clean hands. Dont have contact with people who are sick. Follow local instructions about being in public. For example, you may be told to not use public transport for a period of time. Stay away from markets that have live or animals. Wash your hands after touching any animals. Don't touch animals that may be sick. Dont share eating or drinking tools with sick people. Dont kiss someone who is sick. Clean surfaces often with disinfectant. If you were in an area with COVID-19 in the last 14 days: Call your healthcare provider. He or she can talk with local health staff to see what action may be needed. Follow all instructions from your provider. Take your temperature every morning and evening for at least 14 days. This is to check for fever. Keep a record of the readings. Keep watch for symptoms of the virus. Tell your provider right away if you have symptoms. If you were in an area with COVID-19 and have a fever or other symptoms: Dont panic. Keep in mind that other illnesses can cause similar symptoms. Stay away from work, school, and public places. Limit physical contact with family members. Don't kiss anyone or share eating or drinking utensils. Clean surfaces you touch with disinfectant. This is to help prevent the virus from spreading. Call your healthcare provider. Explain that you have been exposed to COVID-19 and have symptoms. Do this before going to any hospital. Wait for instructions. Keep in mind that healthcare staff may wear protective equipment such as masks, gowns, gloves, and eye protection. You may be put in a separate room. This is to prevent the possible virus from spreading. Tell the healthcare staff about recent travel. This includes local travel on public transport. Staff may need to find other people you have been in contact with. Follow all instructions the healthcare staff give you. If you have been diagnosed with COVID-19 Follow all instructions from your healthcare provider. Dont leave your home, except to get medical care. Call your healthcare providers office before going. They can prepare and give you instructions. This will help prevent the virus from spreading. Dont go to work, school, or public areas. Dont use public transport or taxis. Stay away from other people in your home. Have them wear face masks around you. Dont share household items or food. Wear a face mask if you can. This includes at home or in a medical facility. Cover your face with a tissue when you cough or sneeze. Throw the tissue away. Wash your hands. Wash your hands often. Caregivers should: Follow all instructions from healthcare staff. Wear a face mask and protective clothing as advised. Wash hands often. Keep track of the sick persons symptoms. Clean surfaces, fabrics, and laundry thoroughly. Keep other people away from the sick person. When to call your healthcare provider Call your healthcare provider: If youve recently traveled and have symptoms If you have been diagnosed with COVID-19 and your symptoms are worse To learn more To find out more about COVID-19, visit the CDC website at www.cdc.gov/coronavirus/2019-ncov/index.html. 7287-8925 [employer]. [address] [place] [address]. All rights reserved. This information is not intended as a substitute for professional medical care. Always follow your healthcare professional's instructions. This information has been adapted from [employer] Pending Studies at Discharge: No Stand-Alone Forms: My [facility] [place] [employer], Smoking Cessation Medications and DC Order Prescriptions: New famotidine 20 mg Tablet 20 mg PO BID Qty: 30 RF: 0 loperamide 2 mg Capsule 2 mg PO Q6H PRN (Reason: loose stool) Qty: 30 RF: 0 ondansetron 4 mg Tablet,Disintegrating 4 mg PO Q8H PRN (Reason: nausea and vomiting) Qty: 10 RF: 0 Continued sertraline 100 mg tablet 100 mg PO HS RF: 0 atenolol 25 mg tablet 25 mg PO DAILY RF: 0 levothyroxine 125 mcg tablet See Rx Instructions .ROUTE .COMPLEX RF: 0 lisinopril 40 mg tablet 40 mg PO HS RF: 0 vitamin B complex [B Complex] Capsule 1 cap PO QDL RF: 0 cholecalciferol (vitamin D3) [Vitamin D3] 25 mcg (1,000 unit) Capsule 25 mcg PO QDL RF: 0 fluticasone propionate 50 mcg/actuation spray,suspension 2 spray INTRANASAL DAILY RF: 0 Discontinued Metamucil Free 3 gram/7 gram Powder 1 tbsp PO DAILY RF: 0 ondansetron 4 mg tablet,disintegrating 4 mg translingual Q8 PRN (Reason: Nausea) RF: 0 Discharge Orders: Discharge Order (Routine); Ordered 03/17/21 Ordered By: John Paul Aldana Admission Data Admit Date/Time: 03/16/21 16:32 Attending Provider: John Paul Aldana Admit Provider: John Paul Aldana Primary Care Provider: Juan Spangler Other Providers: John Paul Aldana
[2021-03-17] MEDS ORDERED: FAMOTIDINE 20 MG TAB PO SCH (21:00)
[2021-03-18] MEDS ORDERED: LEVOTHYROXINE SODIUM 125 MCG TABLET PO SCH (06:30)
== END 2021-03-17 19:30 | disposition home or self-care (01) | DRG 178 ==
LOC: ED 12:13 → OBSVTOIN 16:32 → INTOOBSV 16:32 → EDINP 16:32 → 2W 03-17 15:50
DX: Z79.899 Other long term (current) drug therapy; N18.30 Chronic kidney disease, stage 3 unspecified; F41.9 Anxiety disorder, unspecified; A08.39 Other viral enteritis; E87.6 Hypokalemia; E89.0 Postprocedural hypothyroidism; E86.0 Dehydration; I12.9 Hypertensive chronic kidney disease with stage 1 through stage 4 chronic kidney disease, or unspecified chronic kidney disease; U07.1 COVID-19; Z79.890 Hormone replacement therapy